=== PATIENT | male | born 1935 | race Caucasian/White ===

== ENCOUNTER 2017-04-08 10:17 | Inpatient (IN) | payer OTHER ==
[~2017-04-08] VITALS: Ht 154.9 cm; Wt 59.0 kg
[2017-04-08 11:35] LABS: Basophils # (auto) 0 uL; Basophils % (auto) 0.3 % (0.0-2.0); Eosinophils # (auto) 0.2 uL; Eosinophils % (auto) 3.7 % (0.0-7.0); Hematocrit 36.3 % (41.0-53.0); Hemoglobin 12.2 g/dL (13.5-17.5); Lymphocytes # (auto) 0.9 uL; Lymphocytes % (auto) 14.6 % (10.0-50.0); Mean Corpuscular Hemoglobin 31.3 pg (28.0-32.0); Mean Corpuscular Hgb Conc. 33.7 g/dL (32.0-36.0); Mean Corpuscular Volume 92.8 fL (80.0-100.0); Mean Platelet Volume 7.4 fL (6.9-10.8); Monocytes # (auto) 0.4 uL; Monocytes % (auto) 6.2 % (0.0-12.0); Neutrophils # (auto) 4.9 uL; Neutrophils % (auto) 75.2 % (37.0-80.0); Nucleated Red Blood Cells % 0.1 %; Platelet Count (auto) 200 10^3/uL (140-450); Red Cell Distribution Width 15.2 % (11.8-14.3); White Blood Cell 6.5 10^3/uL (4.4-10.8)
[2017-04-08] MEDS ORDERED: SODIUM CHLORIDE 0.9% 1,000 ML IV ONE ×3 (11:45→12:45)
[2017-04-08 11:50] LABS: INR 1.05 (0.9-1.15); Partial Thromboplastin Time 32.4 sec (22.64-33.71); Prothrombin Time 11.4 sec (9.37-12.3)
[2017-04-08 11:53] LABS: Albumin 2.5 g/dL (3.4-5.0); Alkaline Phosphatase 118 U/L (45-117); Anion Gap 7 (5-15); Aspartate Aminotransferase 14 U/L (15-37); BUN/Creatinine Ratio 43.1; Bilirubin, Total 0.4 mg/dL (0.2-1.0); Blood Urea Nitrogen 25 mg/dL (7-18); Calcium 7.9 mg/dL (8.5-10.1); Carbon Dioxide 26 mmol/L (21-32); Chloride 104 mmol/L (98-107); GFR African American 174 mL/min; GFR Non-African American 144 mL/min; Glucose 223 mg/dL (74-106); Magnesium 1.9 mg/dL (1.6-2.6); Potassium 3.4 mmol/L (3.5-5.1); Sodium 137 mmol/L (136-145); Total Protein 6.8 g/dL (6.4-8.2)
[2017-04-08] MEDS: NOREPINEPHRINE 8 MG/250ML KIT 250 ML IV SCH (15:30)
[2017-04-08] MEDS ORDERED: ACETAMINOPHEN 500 MG TAB PO PRN (16:00)
[2017-04-08] MEDS ORDERED: ASPirin 81 mg TAB PO ONE (16:00)
[2017-04-08] MEDS ORDERED: DEXTROSE (50%) 50ML SYRG IV PRN (16:00)
[2017-04-08] MEDS ORDERED: MORPHINE SULF INJ 2 MG/ML SYRINGE 1ML IV PRN (16:00)
[2017-04-08] MEDS ORDERED: HYDROmorphone HCL 2 MG/ML VL IV PRN (16:00)
[2017-04-08] MEDS ORDERED: TEMAZEPAM 15 MG CAP PO PRN (16:00)
[2017-04-08] MEDS ORDERED: LACTULOSE 20Gm/30ML SOLN PO PRN (16:00)
[2017-04-08] MEDS ORDERED: LORazepam 0.5 MG TAB PO PRN (16:00)
[2017-04-08] MEDS ORDERED: NITROGLYCERIN 0.4 MG SL TAB SL PRN (16:00)
[2017-04-08] MEDS ORDERED: PROMETHAZINE HCL 25 MG/ML 1ML IV PRN (16:00)
[2017-04-08] MEDS ORDERED: HYDROcodone-ACET 5/325MG TAB PO PRN (16:00)
[2017-04-08] MEDS: SODIUM CHLORIDE 0.9% 1,000 ML IV SCH (16:06)
[2017-04-08] MEDS ORDERED: ENOXAPARIN SOD 40 MG/0.4 ML SYRINGE SC ONE (16:15)
[2017-04-08 16:45] LABS: Temperature: 21.4 C (20.0-25.0)
[2017-04-08] MEDS ORDERED: CLOPIDOGREL BISULFATE 75 MG TAB PO ONE (16:45)
[2017-04-08 17:29] LABS: Cholesterol 103 mg/dL (< 200); HDL Cholesterol 36 mg/dL (40-59); LDL Cholesterol 59 mg/dL (< 100); Triglycerides 114 mg/dL (< 150)
[2017-04-08] MEDS: ACCU-CHEK COMFORT CURVE STRIP VI SCH ×2 (17:55→21:56)
[2017-04-08] MEDS: InsuLIN REG 1unit/0.01ml Soln (100units/ml) SC SCH ×2 (18:01→21:56)
[2017-04-08] MEDS: cefTRIAXone 1GM/50ML D5W 50 ML IV SCH (18:08)
[2017-04-08] MEDS: methylPREDNISolone SOD SUCC 40 MG/ML VL IV SCH (18:09)
[2017-04-08] MEDS: CLINDAMYCIN 600MG IV 50 ML IV SCH (19:20)
[2017-04-08] MEDS: ATORVASTATIN 20 MG TAB PO SCH (22:02)
[2017-04-09] MEDS: SODIUM CHLORIDE 0.9% 1,000 ML IV SCH ×2 (01:55→12:02)
[2017-04-09] MEDS: CLINDAMYCIN 600MG IV 50 ML IV SCH ×3 (03:00→19:29)
[2017-04-09 04:37] LABS: Cholesterol 102 mg/dL (< 200); HDL Cholesterol 38 mg/dL (40-59); LDL Cholesterol 61 mg/dL (< 100); Triglycerides 72 mg/dL (< 150)
[2017-04-09] MEDS: InsuLIN REG 1unit/0.01ml Soln (100units/ml) SC SCH ×4 (06:40→22:30)
[2017-04-09] MEDS: ACCU-CHEK COMFORT CURVE STRIP VI SCH ×4 (06:40→22:30)
[2017-04-09] MEDS: cefTRIAXone 1GM/50ML D5W 50 ML IV SCH (09:12)
[2017-04-09] MEDS ORDERED: ASPirin 81 mg TAB PO SCH (10:00)
[2017-04-09] MEDS: ENOXAPARIN SOD 40 MG/0.4 ML SYRINGE SC SCH (10:11)
[2017-04-09] MEDS: methylPREDNISolone SOD SUCC 40 MG/ML VL IV SCH (10:11)
[2017-04-09] MEDS: NOREPINEPHRINE 8 MG/250ML KIT 250 ML IV SCH (12:34)
[2017-04-09] MEDS: ALBUMIN 25% 100 ML IV SCH ×2 (14:29→21:00)
[2017-04-09 17:03] LABS: B-Type Natriuretic Peptide 480.25 pg/mL (0-100)
[2017-04-09 17:14] LABS: Temperature: 23.3 C (20.0-25.0)
[2017-04-09] MEDS: ALBUTEROL SULF 2.5 MG/0.5ML(0.5%) NEB SOLN NEB SCH (18:00)
[2017-04-09] MEDS ORDERED: ALBUMIN 25% 100 ML IV ONE (20:19)
[2017-04-09 20:40] VITALS: BP 106/67
[2017-04-09] MEDS: ATORVASTATIN 20 MG TAB PO SCH (22:30)
[2017-04-10] MEDS: CLINDAMYCIN 600MG IV 50 ML IV SCH ×2 (03:00→09:35)
[2017-04-10] MEDS: ALBUTEROL SULF 2.5 MG/0.5ML(0.5%) NEB SOLN NEB SCH ×3 (06:41→13:30)
[2017-04-10] MEDS: InsuLIN REG 1unit/0.01ml Soln (100units/ml) SC SCH ×2 (07:00→11:28)
[2017-04-10] MEDS: ACCU-CHEK COMFORT CURVE STRIP VI SCH ×2 (07:03→11:28)
[2017-04-10 08:06] LABS: Rheumatoid Arthritis Factor <10.0 IU/mL (0.0-13.9)
[2017-04-10 08:11] LABS: Basophils # (auto) 0 uL; Basophils % (auto) 0.3 % (0.0-2.0); Eosinophils # (auto) 0 uL; Eosinophils % (auto) 0.5 % (0.0-7.0); Hematocrit 28.4 % (41.0-53.0); Hemoglobin 9.7 g/dL (13.5-17.5); Lymphocytes # (auto) 1.2 uL; Lymphocytes % (auto) 28.7 % (10.0-50.0); Mean Corpuscular Hemoglobin 31.8 pg (28.0-32.0); Mean Corpuscular Volume 93.5 fL (80.0-100.0); Mean Platelet Volume 7.8 fL (6.9-10.8); Monocytes # (auto) 0.3 uL; Monocytes % (auto) 8.4 % (0.0-12.0); Neutrophils # (auto) 2.5 uL; Neutrophils % (auto) 62.1 % (37.0-80.0); Nucleated Red Blood Cells % 0.2 %; Platelet Count (auto) 132 10^3/uL (140-450); Red Cell Distribution Width 15.6 % (11.8-14.3); White Blood Cell 4.1 10^3/uL (4.4-10.8)
[2017-04-10 08:26] LABS: Albumin 2.8 g/dL (3.4-5.0); Calcium 7.8 mg/dL (8.5-10.1); Potassium 4.2 mmol/L (3.5-5.1)
[2017-04-10 08:28] LABS: BUN/Creatinine Ratio 48.9
[2017-04-10 08:30] LABS: Bilirubin, Total 0.4 mg/dL (0.2-1.0); Total Protein 5.7 g/dL (6.4-8.2)
[2017-04-10] MEDS: methylPREDNISolone SOD SUCC 40 MG/ML VL IV SCH (09:22)
[2017-04-10] MEDS: ENOXAPARIN SOD 40 MG/0.4 ML SYRINGE SC SCH (09:22)
[2017-04-10] MEDS: cefTRIAXone 1GM/50ML D5W 50 ML IV SCH (09:25)
[2017-04-10] MEDS ORDERED: CLOPIDOGREL BISULFATE 75 MG TAB PO ONE (12:15)
[2017-04-10 14:16] VITALS: BP 107/60
[2017-04-10] MEDS ORDERED: SODIUM CHLORIDE 0.9% 1,000 ML IV SCH (15:47)
[2017-04-13 12:08] LABS: Sjogren's Anti-SS-A Antibody <0.2 AI (0.0-0.9)
== END 2017-04-10 14:28 | disposition short-term general hospital (02) | DRG 64 ==
LOC: ER 10:17 → EDBD 10:17 → TELE 10:18
PROVIDERS: ADMIT Internal Medicine; ATTEND Internal Medicine
DX: I63.9 Cerebral infarction, unspecified (principal); G93.41 Metabolic encephalopathy; E43 Unspecified severe protein-calorie malnutrition; E11.21 Type 2 diabetes mellitus with diabetic nephropathy; I95.9 Hypotension, unspecified; E11.40 Type 2 diabetes mellitus with diabetic neuropathy, unspecified; E11.65 Type 2 diabetes mellitus with hyperglycemia; E11.22 Type 2 diabetes mellitus with diabetic chronic kidney disease; G81.94 Hemiplegia, unspecified affecting left nondominant side; L03.114 Cellulitis of left upper limb; I50.22 Chronic systolic (congestive) heart failure; M13.832 Other specified arthritis, left wrist; I11.0 Hypertensive heart disease with heart failure; E78.5 Hyperlipidemia, unspecified; I25.10 Atherosclerotic heart disease of native coronary artery without angina pectoris; F32.9 Major depressive disorder, single episode, unspecified; R47.01 Aphasia; Z79.02 Long term (current) use of antithrombotics/antiplatelets; Z86.73 Personal history of transient ischemic attack (TIA), and cerebral infarction without residual deficits; Z95.5 Presence of coronary angioplasty implant and graft; Z89.511 Acquired absence of right leg below knee; Z89.512 Acquired absence of left leg below knee; Z89.611 Acquired absence of right leg above knee; Z89.612 Acquired absence of left leg above knee; Z95.1 Presence of aortocoronary bypass graft; Z68.24 Body mass index [BMI] 24.0-24.9, adult
CPT/HCPCS: 36415; 51702; 70450; 71010; 73110; 80053; 80061; 80307; 80320; 82550; 82607; 82746; 82962; 83036; 83516; 83605; 83735; 83880; 84443; 84550; 85025; 85610; 85652; 85730; 86141; 86225; 86235; 86431; 87040; 87086; 92610; 93005; 93306; 93886; 94640; 96361; 96365; 96367; 96368; 96372; 96375; 99291; J0696; J1815; J3490